=== PATIENT | female | born 1975 | race African-American/Black ===

== ENCOUNTER 2017-09-12 14:22 | Observation (INO) | payer MEDICAID ==
[~2017-09-12] VITALS: Ht 157.5 cm; Wt 54.4 kg
[~2017-09-12 14:22] MED LIST: FERR325T23
[2017-09-12] MEDS ORDERED: ONDANSETRON HCL 4MG/2ML VIAL IV STA (14:31)
[2017-09-12] MEDS ORDERED: SODIUM CHLORIDE 0.9% 1,000 ML IV ONE (14:31)
[2017-09-12] MEDS ORDERED: FAMOTIDINE 20MG/2ML VIAL IV STA (14:31)
[2017-09-12] MEDS ORDERED: ESOM40CA PO (14:33)
[2017-09-12] MEDS ORDERED: AMLO10TA80 PO (14:33)
[2017-09-12 15:44] LABS: BASOPHILS % 1.2 % (0.0-2.0); EOSINOPHILS % 0.2 % (0.0-5.0); HEMOGLOBIN. 13.7 g/dL (12.0-16.0); MEAN CORPUSCULAR HEMOGLOBIN 32.6 pg (28.0-32.0); MEAN CORPUSCULAR VOLUME 94.9 fL (81.0-99.0); MEAN PLATELET VOLUME 7.2 fl (7.4-10.4); NEUTROPHILS % 76.6 % (40.0-76.0); PLATELET 370 x1000/uL (130-400); RED BLOOD CELL COUNT 4.21 mill/uL (4.2-5.4); RED CELL DISTRIBUTION WIDTH 13.2 % (11.6-14.6)
[2017-09-12] MEDS ORDERED: MORPHINE SULFATE 4 MG/ML CPJ (NOT FOR IM USE) IV ONE ×2 (15:45→20:15)
[2017-09-12 15:48] LABS: CHLORIDE 103 mEq/L (98-107)
[2017-09-12 15:50] LABS: PROTHROMBIN TIME 10.4 sec (9.4-11.6)
[2017-09-12 17:21] LABS: CLARITY URINE CLEAR (CLEAR); COLOR URINE YELLOW (YELLOW); KETONES URINE NEGATIVE (NEGATIVE); LEUKOCYTE ESTERASE URINE 1+ (NEGATIVE); NITRITE URINE NEGATIVE (NEGATIVE); OCCULT BLOOD URINE 1+ (NEGATIVE); PH URINE 5.5 (4.5-8.0); PROTEIN URINE NEGATIVE (NEGATIVE); SPECIFIC GRAVITY URINE 1.017 (1.005-1.030); UROBILINOGEN URINE 0.2 E.U./dL (0.2-1.0)
[2017-09-12] MEDS ORDERED: IOHEXOL-300 100 ML BOTTLE ONE (18:26)
[2017-09-12] MEDS ORDERED: PIPERACILLIN/TAZOBACTAM 3.375GM/50ML PREMIX IV NR (20:15)
[2017-09-12] MEDS ORDERED: HYDROMORPHONE HCL/PF 2MG/ML CPJ IV PRN (21:30)
[2017-09-12] MEDS ORDERED: FENTANYL CITRATE/PF 50MCG/ML 2ML VIAL IV PRN (21:30)
[2017-09-12] MEDS ORDERED: LIDOCAINE HCL/PF 1% 10 MG/ML 5ML VIAL ONE (21:35)
[2017-09-12] MEDS ORDERED: PROPOFOL 200MG/20ML VIAL IV ONE (21:35)
[2017-09-12] MEDS ORDERED: SUCCINYLCHOLINE CHLORIDE 200MG/10ML VIAL IV ONE (21:35)
[2017-09-12] MEDS ORDERED: FENTANYL CITRATE/PF 50MCG/ML 2ML VIAL ONE (21:35)
[2017-09-12] MEDS ORDERED: MIDAZOLAM HCL 2 MG/2 ML VIAL ONE (21:35)
[2017-09-12] MEDS ORDERED: ROCURONIUM BROMIDE 10MG/ML VIAL 5ML IV ONE (21:36)
[2017-09-12] MEDS ORDERED: BUPIVACAINE HCL/PF 0.5% (5MG/ML) 10ML ONE (21:50)
[2017-09-12] MEDS ORDERED: SKIN ADHESIVE 0.7 GM EA TOP ONE (21:50)
[2017-09-12] MEDS ORDERED: MORPHINE SULFATE 4 MG/ML CPJ (NOT FOR IM USE) IV PRN (22:30)
[2017-09-12] MEDS ORDERED: ONDANSETRON HCL 4MG/2ML VIAL ONE (23:18)
[2017-09-12] MEDS ORDERED: GLYCOPYRROLATE 0.2 MG/ML 2ML VIAL ONE (23:36)
[2017-09-12] MEDS ORDERED: NEOSTIGMINE METHYLSULFATE 1MG/ML 10 ML VIAL ONE (23:36)
[2017-09-13] MEDS ORDERED: HYDRALAZINE 20MG/ML VIAL IV PRN (00:15)
[2017-09-13] MEDS ORDERED: MEPERIDINE HCL/PF 25MG/ML CPJ IV PRN (00:15)
[2017-09-13 01:15] VITALS: BP 134/86
[2017-09-13] MEDS ORDERED: ASPI-1159 MT (01:29)
[2017-09-13 01:30] VITALS: BP 134/86
[2017-09-13] MEDS ORDERED: ONDANSETRON HCL 4MG/2ML VIAL IV PRN ×2 (02:26→02:31)
[2017-09-13] MEDS ORDERED: HYDROCODONE/ACETAMINOPHEN 5/325MG TABLET PO PRN ×2 (02:29)
[2017-09-13] MEDS ORDERED: MORPHINE SULFATE 4 MG/ML CPJ (NOT FOR IM USE) IV PRN (02:31)
[2017-09-13] MEDS ORDERED: DEXT 5%/0.45% NACL KCL 20MEQ/L 1,000 ML IV SCH (04:00)
[2017-09-13] MEDS ORDERED: SODIUM CHLORIDE 0.9% INJ 3ML FLUSH IVF SCH (06:00)
[2017-09-13 08:00] VITALS: BP 113/66
[2017-09-13 09:56] LABS: BASOPHILS % 0.6 % (0.0-2.0); EOSINOPHILS % 0.2 % (0.0-5.0); HEMATOCRIT. 33.7 % (36.0-48.0); HEMOGLOBIN. 11.6 g/dL (12.0-16.0); LYMPHOCYTES % 23.6 % (20.0-50.0); MEAN PLATELET VOLUME 7.3 fl (7.4-10.4); MONOCYTES % 6.7 % (2.0-8.0); NEUTROPHILS % 68.9 % (40.0-76.0); PLATELET 297 x1000/uL (130-400); RED BLOOD CELL COUNT 3.51 mill/uL (4.2-5.4); RED CELL DISTRIBUTION WIDTH 13.3 % (11.6-14.6)
[2017-09-13 10:28] LABS: CHLORIDE 106 mEq/L (98-107)
[2017-09-13 12:00] VITALS: BP 107/64
[2017-09-13 13:41] VITALS: BP 107/64
== END 2017-09-13 14:07 | disposition home or self-care (01) ==
LOC: ER 15:46 → INTOOBSV 21:15 → 6EST 21:15 → ENRESERV 21:32 → EDBEDREQSVC 21:32
PROVIDERS: ADMIT Family Medicine; ATTEND Family Medicine
DX: K35.80 Unspecified acute appendicitis (principal); K21.9 Gastro-esophageal reflux disease without esophagitis; I10 Essential (primary) hypertension
CPT/HCPCS: 36415; 44970; 73706; 74177; 80053; 81003; 83690; 85025; 85610; 87040; 88304; 93005; 96374; 96375; 96376; 99285; G0168; G0378; J0330; J2175; J2250; J2270; J2405; J2543; J2710; J3010; J3490; J7030; Q9967; 96365; 96366; J2704